=== PATIENT | male | born 1995 | race American Indian/Alaskan Native ===

== ENCOUNTER 2019-05-27 09:11 | Emergency (ER) | payer OTHER ==
[2019-05-27] MEDS ORDERED: SILVER NITRATE TP ONE ×2 (09:43→09:44)
[2019-05-27] MEDS ORDERED: IBUPROFEN PO ONE (09:53)
--- NOTE | 2019-05-27 10:03 | Emergency Department Report ---
ED Laceration HPI - HPI Chief Complaint: Wound/Laceration Stated Complaint: CUT ON (R) FINGER Time Seen by Provider: 05/27/19 09:42 Occurred When: Today Location: Upper Extremity Tetanus Status: Up to Date Laceration Symptoms: Yes Pain, No Foreign Body Sensation, No Numbness, No Weakness Other History: 24-year-old male who was at work accidentally cut his head on a piece of glass. Patient was able to control bleeding. Patient denies any foreign objects into the finger. ED Review of Systems ROS: Stated complaint: CUT ON (R) FINGER Other details as noted in HPI Comment: All other systems reviewed and negative ED Past Medical Hx - Past Medical History Previous Medical History?: No - Surgical History Past Surgical History?: No - Social History Smoking Status: Never Smoker Substance Use Type: None - Medications Home Medications: Home Medications Medication Instructions Recorded Confirmed Last Taken Type Ibuprofen [Motrin 800 MG tab] 800 mg PO TID #20 tablet 05/27/19 Unknown Rx cephALEXin [Keflex] 500 mg PO Q12HR #10 cap 05/27/19 Unknown Rx Laceration Physical Exam - Exam General: Vital signs noted. No distress. Alert and acting appropriately. Laceration Exam: Yes Normal Distal CMS, No Foreign Body, No Exposed Tendon, Vessel, or Nerve, No Tendon Injury ED Course Vital Signs 05/27/19 09:22 Temperature 98.3 F Pulse Rate 60 Respiratory 16 Rate Blood Pressure 147/92 [Left] O2 Sat by Pulse 99 Oximetry ED Medical Decision Making - Medical Decision Making 24-year-old male presents to for finger laceration to his right middle finger Discuss abrasion care with the patient. Discuss to follow up with primary care physician Vital signs are normal patient is in no acute distress. Abrasion was cleaned with 200 mL of normal saline. Wound was minor laceration to the finger. The nitrate was used to stop the bleeding Small finger Laceration was then sterilely wrapped. Critical care attestation.: If time is entered above; I have spent that time in minutes in the direct care of this critically ill patient, excluding procedure time. ED Disposition Clinical Impression: Finger laceration Disposition: [id number] TO HOME OR SELFCARE Is pt being admited?: No Does the pt Need Aspirin: No Condition: Stable Instructions: Finger Laceration (ED) Additional Instructions: Make sure to follow up with the primary care physician as discussed. Take all your medications as you've been prescribed. If you have any worsening symptoms or develop new symptoms please return to ED immediately. Prescriptions: cephALEXin [Keflex] 500 mg PO Q12HR #10 cap Ibuprofen [Motrin 800 MG tab] 800 mg PO TID #20 tablet Referrals: [facility] [Outside] - 3-5 Days Forms: Work/School Release Form(ED) Time of Disposition: 10:10
[2019-05-27 10:28] VITALS: BP 141/90
== END 2019-05-27 10:18 | disposition home or self-care (01) ==
LOC: ED 09:11
DX: S61.212A Laceration without foreign body of right middle finger without damage to nail, initial encounter (principal); W25.XXXA Contact with sharp glass, initial encounter; Y93.89 Activity, other specified; Y92.89 Other specified places as the place of occurrence of the external cause; Y99.8 Other external cause status
CPT/HCPCS: 99282